=== PATIENT | female | born 1995 | race Native Hawaiian/Other Pacific Islander ===

== ENCOUNTER 2018-11-13 08:45 | Emergency (ER) | payer SELFPAY ==
--- NOTE | 2018-11-13 09:08 | UC ---
Skin Complaint HPI - HPI Summary HPI Summary: 23 year old female with no PMH no prior skin infections, no h/o MRSA presents with redness/ pain under her L buttock since thurs, increased in pain, last night noted "pimple" with head, area opened up and drainage purulent material, treated with hydrogen peroxide by mother, continues to have pain in area. No fever, chills, walking OK, painful to sit on area. - History of Current Complaint Chief Complaint: UCSkin Time Seen by Provider: 11/13/18 09:01 Stated Complaint: PERSONAL Hx Obtained From: Patient Hx Last Menstrual Period: 10/20/18 ?: No Onset/Duration: Sudden Onset, Lasting Days, Still Present Skin Exposure Onset/Duration: Days Ago Onset Severity: Moderate Current Severity: Moderate Pain Intensity: 8 Pain Scale Used: 0-10 Numeric Location: Discrete - L buttock region Aggravating Factor(s): Touch Associated Signs & Symptoms: Positive: Negative - Allergy/Home Medications Allergies/Adverse Reactions: Allergies Allergy/AdvReac Type Severity Reaction Status Date / Time No Known Allergies Allergy Verified 11/13/18 09:04 PMH/Surg Hx/FS Hx/Imm Hx Previously Healthy: Yes - Surgical History Surgical History: None - Social History Alcohol Use: None Substance Use Type: None Smoking Status (MU): Never Smoked Tobacco Review of Systems All Other Systems Reviewed And Are Negative: Yes Skin: Positive: Other - draining redness Is Patient Immunocompromised?: No Physical Exam Triage Information Reviewed: Yes Appearance: Well-Appearing, No Pain Distress, Well-Nourished Vital Signs: Initial Vital Signs Temp 98 F 11/13/18 09:00 Pulse 99 11/13/18 09:00 Resp 16 11/13/18 09:00 BP 113/77 11/13/18 09:00 Pulse Ox 100 11/13/18 09:00 Vital Signs Reviewed: Yes Eyes: Positive: Conjunctiva Clear Musculoskeletal Exam: Normal Musculoskeletal: Positive: ROM Intact, Edema @ - minimal induration/ edema at mid lower L buttock Neurological Exam: Normal Psychological Exam: Normal Skin: Positive: Other - ~ 3x2cm area of induration with opening in center, no fluctuant areas, small srop of purulent material expressed followed by clear, serous fluid, no abscess palpable/ seen on examation, + erythematous, + warmth, + TTP No lympahngitis streaking, no LAD, no other areas noted. Course/Dx - Course Course Of Treatment: Likely self- drained abscess with remaining cellulitis, keep warm compresses to keep drainage site pen, antibiotics, I&D un-necessary currently. - Differential Diagnoses - Skin Complaint Differential Diagnoses: Cellulitis - Diagnoses Provider Diagnosis: Cellulitis and abscess of buttock Discharge - Sign-Out/Discharge Documenting (check all that apply): Patient Departure All imaging exams completed and their final reports reviewed: No Studies - Discharge Plan Condition: Good Disposition: HOME Prescriptions: Cephalexin CAP* [Keflex CAP*] 500 mg PO QID #28 cap Patient Education Materials: Cellulitis (DC), Cephalexin (By mouth) Referrals: No Primary Care Phys,NOPCP [Primary Care Provider] - Additional Instructions: - ANtibiotics as directed - Continue to monitor area, if no improvement within 1-2 days, return or follow up with primary - Return if increased pain not controlled with motrin/ tyelnol, increasing redness, fever, chills, decreased walking/ standing. - Warm compresses/ warm washcloth to area ~ 5 times a day to keep open and draining to prevent build up of pus - keep area covered with bandage - Billing Disposition and Condition Condition: GOOD Disposition: Home
== END 2018-11-13 09:53 | disposition home or self-care (01) ==
LOC: UCEAST 08:45
DX: L03.317 Cellulitis of buttock (principal); L02.31 Cutaneous abscess of buttock
CPT/HCPCS: 99202; G0463